=== PATIENT | female | born 1960 | race Caucasian/White ===

== ENCOUNTER 2017-05-28 11:32 | Outpatient (CLI) | payer MEDICARE, OTHER ==
[2015-11-22 14:41] VITALS: BP 138/68
[2017-05-28 12:21] LABS: eGFR (African) > 60; eGFR (Non-African) > 60
== END 2017-05-28 11:33 ==
LOC: LAB 11:32
PROVIDERS: ATTEND Psychiatry & Neurology Psychiatry
DX: Z79.899 Other long term (current) drug therapy (principal); F20.0 Paranoid schizophrenia; Z11.59 Encounter for screening for other viral diseases
CPT/HCPCS: 36415; 80053; 80061; 83036; 86803

== ENCOUNTER 2018-03-22 12:04 | Outpatient (CLI) | payer MEDICARE, OTHER ==
[2015-11-22 14:41] VITALS: BP 138/68
== END 2018-03-22 12:06 ==
LOC: LABRHC 12:04
PROVIDERS: ATTEND Physician Assistant
DX: R30.9 Painful micturition, unspecified (principal); R35.0 Frequency of micturition
CPT/HCPCS: 87086; 87186

== ENCOUNTER 2018-11-03 13:03 | Outpatient (CLI) | payer MEDICARE, OTHER ==
[2015-11-22 14:41] VITALS: BP 138/68
[2018-11-03 13:40] LABS: eGFR (Non-African) > 60
== END 2018-11-03 13:05 ==
LOC: LAB 13:03
PROVIDERS: ATTEND Family Medicine
DX: I10 Essential (primary) hypertension (principal); R73.9 Hyperglycemia, unspecified
CPT/HCPCS: 36415; 80053; 80061; 83036